=== PATIENT | female | born 1955 | race Caucasian/White ===

== ENCOUNTER 2017-10-15 09:02 | Observation (INO) | payer OTHER ==
[~2017-10-15] VITALS: Ht 167.6 cm; Wt 116.1 kg
[2017-10-15 10:08] LABS: Basophils # (auto) 0.1 uL; Basophils % (auto) 1.1 % (0.0-2.0); Eosinophils # (auto) 0.2 uL; Eosinophils % (auto) 2.7 % (0.0-7.0); Hemoglobin 14.6 g/dL (12.2-16.2); Lymphocytes # (auto) 2.2 uL; Lymphocytes % (auto) 29.3 % (10.0-50.0); Mean Corpuscular Hemoglobin 31.8 pg (28.0-32.0); Mean Corpuscular Volume 93.5 fL (80.0-100.0); Monocytes # (auto) 0.5 uL; Monocytes % (auto) 6.7 % (0.0-12.0); Neutrophils # (auto) 4.5 uL; Neutrophils % (auto) 60.2 % (37.0-80.0); Platelet Count (auto) 287 10^3/uL (140-450); Red Blood Cells 4.59 10^6/uL (4.0-5.20); Red Cell Distribution Width 13.4 % (11.8-14.3); White Blood Cell 7.4 10^3/uL (4.4-10.8)
[2017-10-15 10:24] LABS: Urine Blood Negative /uL (Negative); Urine Specific Gravity 1.017 (1.001-1.035)
[2017-10-15 10:26] LABS: Urine WBC 5 /hpf (0 - 5)
[2017-10-15 10:27] LABS: Urine Bacteria FEW /hpf (None Seen)
[2017-10-15 10:30] LABS: Alanine Aminotransferase 33 U/L (13-56); Albumin 3.9 g/dL (3.4-5.0); Alkaline Phosphatase 99 U/L (45-117); Anion Gap 7 (5-15); Aspartate Aminotransferase 17 U/L (15-37); BUN/Creatinine Ratio 17.4; Bilirubin, Total 0.2 mg/dL (0.2-1.0); Blood Urea Nitrogen 21 mg/dL (7-18); Calcium 9.2 mg/dL (8.5-10.1); Carbon Dioxide 25 mmol/L (21-32); Chloride 104 mmol/L (98-107); GFR African American 58 mL/min; GFR Non-African American 48 mL/min; Glucose 246 mg/dL (74-106); Potassium 4.5 mmol/L (3.5-5.1); Sodium 136 mmol/L (136-145); Total Protein 7.9 g/dL (6.4-8.2)
[2017-10-15 15:49] LABS: Magnesium 1.9 mg/dL (1.6-2.6)
[2017-10-15] MEDS ORDERED: cefTRIAXone 1GM/10ml IVPUSH 10 ML IV ONE ×2 (17:47→18:00)
[2017-10-15 17:49] LABS: INR 0.93 (0.9-1.15); Partial Thromboplastin Time 27.5 sec (22.64-33.71); Prothrombin Time 10.1 sec (9.37-12.3)
[2017-10-15 17:59] VITALS: BP 160/92
[2017-10-15] MEDS ORDERED: KETOROLAC TROMETH 30 MG/ML 1ML VIAL IV ONE (18:00)
== END 2017-10-15 19:23 | disposition home or self-care (01) | DRG 694 ==
LOC: ER 09:02 → OVERFLOW 15:21 → ER 19:22
PROVIDERS: ADMIT Family Medicine; ATTEND Family Medicine
DX: N20.0 Calculus of kidney (principal); E11.9 Type 2 diabetes mellitus without complications; N39.0 Urinary tract infection, site not specified; I10 Essential (primary) hypertension; F17.200 Nicotine dependence, unspecified, uncomplicated; Z82.49 Family history of ischemic heart disease and other diseases of the circulatory system
CPT/HCPCS: 36415; 71045; 74176; 80053; 81001; 82150; 83690; 83735; 84484; 85025; 85610; 85730; 93005; 96374; 96375; 99285; G0378; J1885

== ENCOUNTER 2020-09-05 12:20 | Inpatient (IN) | payer OTHER ==
[~2020-09-05] VITALS: Ht 167.6 cm; Wt 120.0 kg
[2020-09-05] MEDS ORDERED: methylPREDNISolone SOD SUCC 125 MG/2 ML VL IV ONE (12:45)
[2020-09-05 13:52] LABS: Basophils # (auto) 0 10 ^3/uL (0-0.2); Basophils % (auto) 0.2 % (0.0-2.0); Eosinophils # (auto) 0 10 ^3/uL (0-0.8); Hematocrit 35.8 % (36.0-46.0); Lymphocytes # (auto) 0.7 10 ^3/uL (0.4-5.4); Lymphocytes % (auto) 10.3 % (10.0-50.0); Mean Corpuscular Hemoglobin 30.7 pg (28.0-32.0); Mean Corpuscular Hgb Conc. 33.4 g/dL (32.0-36.0); Mean Corpuscular Volume 91.8 fL (80.0-100.0); Monocytes # (auto) 0.3 10 ^3/uL (0-1.3); Monocytes % (auto) 4.2 % (0.0-12.0); Neutrophils # (auto) 5.6 10 ^3/uL (1.6-8.6); Neutrophils % (auto) 85.3 % (37.0-80.0); Platelet Count (auto) 220 10^3/uL (140-450); Red Cell Distribution Width 13.9 % (11.8-14.3); White Blood Cell 6.5 10^3/uL (4.4-10.8)
[2020-09-05 14:12] LABS: Anion Gap 11 (5-15); Blood Urea Nitrogen 26 mg/dL (7-18); Calcium 8.4 mg/dL (8.5-10.1); Carbon Dioxide 15 mmol/L (21-32); Chloride 109 mmol/L (98-107); Glucose 175 mg/dL (74-106); Potassium 3.9 mmol/L (3.5-5.1); Sodium 135 mmol/L (136-145)
[2020-09-05 14:21] LABS: Alanine Aminotransferase 45 U/L (13-56); Alkaline Phosphatase 108 U/L (45-117); Aspartate Aminotransferase 48 U/L (15-37); BUN/Creatinine Ratio 16.1; Bilirubin, Total 0.3 mg/dL (0.2-1.0); GFR African American 42 mL/min; GFR Non-African American 34 mL/min; Total Protein 7.6 g/dL (6.4-8.2)
[2020-09-05] MEDS ORDERED: NITROGLYCERIN 0.4 MG SL TAB SL PRN (15:15)
[2020-09-05] MEDS ORDERED: LORazepam 0.5 MG TAB PO PRN (15:15)
[2020-09-05] MEDS ORDERED: MORPHINE SULF INJ 2 MG/ML SYRINGE 1ML IV PRN (15:15)
[2020-09-05] MEDS ORDERED: SODIUM CHLORIDE 0.9% 1,000 ML IV ONE (15:15)
[2020-09-05] MEDS ORDERED: LEVOTHYROXINE SODIUM 50 MCG TAB PO ONE (15:30)
[2020-09-05 15:37] LABS: Magnesium 1.8 mg/dL (1.6-2.6)
[2020-09-05] MEDS ORDERED: AZIT250T8 PO (15:58)
[2020-09-05] MEDS ORDERED: ALBUAER3 IN (15:58)
[2020-09-05] MEDS ORDERED: PROM1SOL2 PO (15:58)
[2020-09-05] MEDS ORDERED: ATEN-60 PO (16:02)
[2020-09-05] MEDS ORDERED: HYDR200T36 PO (16:02)
[2020-09-05] MEDS ORDERED: [UNRECOGNIZED DRUG - CODE] PO (16:02)
[2020-09-05] MEDS ORDERED: LISI-275 PO (16:02)
[2020-09-05] MEDS ORDERED: ATOR10TA52 PO (16:02)
[2020-09-05] MEDS ORDERED: GLIP10TA9 PO (16:02)
[2020-09-05] MEDS: MORPHINE SULF INJ 2 MG/ML SYRINGE 1ML IV PRN (20:42)
[2020-09-05] MEDS: PANTOPRAZOLE 40 MG TAB PO SCH (22:07)
[2020-09-05] MEDS: BUDESONIDE (INHALATION) 180 MCG IH IN SCH (23:10)
[2020-09-05 23:45] VITALS: BP 142/75
[2020-09-06 00:27] VITALS: BP 135/75
[2020-09-06] MEDS: ALBUTEROL SULF HFA 90MCG INH 200DOSE IN PRN ×3 (00:45→20:50)
[2020-09-06] MEDS: MORPHINE SULF INJ 2 MG/ML SYRINGE 1ML IV PRN (01:58)
--- NOTE | 2020-09-06 04:17 | NUR ---
POST REMDESIVIR 1 HOUR POST VITAL SIGNS TEMP 98.1 PULSE 81 BLOOD PRESSURE 142/64 OXYGEN IS 91% ON 10 LITERS OXYMIZER. PAIN IS 2/10
[2020-09-06 05:00] VITALS: BP 136/63
[2020-09-06] MEDS ORDERED: VANCOMYCIN PER PHARMACY 0 MG IV SCH (05:15)
--- NOTE | 2020-09-06 05:15 | NUR ---
NOTIFIED OF LAB RESULTS GRAM NEGATIVE RODS. ORDERED VANCO PER PHARMACY.
[2020-09-06 05:44] LABS: Basophils # (auto) 0 10 ^3/uL (0-0.2); Basophils % (auto) 0.1 % (0.0-2.0); Eosinophils # (auto) 0 10 ^3/uL (0-0.8); Hematocrit 34.5 % (36.0-46.0); Hemoglobin 11.4 g/dL (12.2-16.2); Lymphocytes # (auto) 0.4 10 ^3/uL (0.4-5.4); Lymphocytes % (auto) 4.9 % (10.0-50.0); Mean Corpuscular Volume 91.2 fL (80.0-100.0); Monocytes # (auto) 0.4 10 ^3/uL (0-1.3); Monocytes % (auto) 5.2 % (0.0-12.0); Neutrophils # (auto) 6.4 10 ^3/uL (1.6-8.6); Neutrophils % (auto) 89.8 % (37.0-80.0); Platelet Count (auto) 252 10^3/uL (140-450); Red Blood Cells 3.78 10^6/uL (4.0-5.20); Red Cell Distribution Width 14.3 % (11.8-14.3); White Blood Cell 7.1 10^3/uL (4.4-10.8)
[2020-09-06] MEDS ORDERED: VANCOMYCIN 1GM/250ML 250 ML IV ONE (05:45)
[2020-09-06 06:03] LABS: Potassium 4.5 mmol/L (3.5-5.1)
[2020-09-06 06:15] LABS: Albumin 2.7 g/dL (3.4-5.0); BUN/Creatinine Ratio 27.3; Bilirubin, Total 0.2 mg/dL (0.2-1.0); Calcium 8.4 mg/dL (8.5-10.1); Total Protein 7.3 g/dL (6.4-8.2)
[2020-09-06] MEDS: BUDESONIDE (INHALATION) 180 MCG IH IN SCH ×2 (07:00→19:25)
--- NOTE | 2020-09-06 08:00 | NUR ---
Morning note patient resting in bed with eyes closed; respirations even and unlabored on supplemental oxygen, no distress noted. Fall precautions in place with call light within reach.
[2020-09-06 09:00] VITALS: BP 148/64
[2020-09-06] MEDS ORDERED: cefTRIAXone 1GM/50ML D5W 50 ML IV SCH (09:00)
[2020-09-06] MEDS: PANTOPRAZOLE 40 MG TAB PO SCH ×2 (09:48→21:46)
[2020-09-06] MEDS: ASCORBIC ACID 1,000 MG TAB PO SCH (09:48)
[2020-09-06] MEDS: ZINC SULFATE 220mg CAP or TAB PO SCH (09:49)
[2020-09-06] MEDS: CHOLECALCIFEROL (VITD3) 2,000 UNIT CAP PO SCH (09:49)
[2020-09-06] MEDS: ACETAMINOPHEN 500 MG TAB PO PRN (09:50)
[2020-09-06] MEDS ORDERED: AZITHROMYCIN 500MG/ 250ML 250 ML IV SCH (10:00)
[2020-09-06] MEDS: DOCUSATE CALCIUM 240 MG CAP PO SCH (10:00)
--- NOTE | 2020-09-06 10:29 | NUR ---
was at bedside - Dr. Maxwell This RN was at bedside. POC discussed with RN and patient.
--- NOTE | 2020-09-06 12:00 | NUR ---
RE: Intervention Encouraged patient to sit in chair at bedside. Patient verbalized understanding. Patient sitting at side of bed with both feet dangling. Call light within reach. Addendum: 09/06/20 at 1317 by Sheila Apodaca RN Amended: Links added.
--- NOTE | 2020-09-06 12:35 | NUR ---
WOUND CARE NOTE: Wound care in to see patient per wound care request regarding " open wound to right great toe". Bedside nurse took photograph of patient's wound upon admission for reference. Patient is 65 y/o female with admitting diagnosis of Pneumonia,CoVid. Patient is resting in bed in Rm. 215A. She's on airborne precautions due to CoVid. Patient is awake, alert and oriented. She's self turning and repositioning and she reported that she's ambulatory. Her Steve score is 20. Noted patient's plantar aspect of R great toe has 1x1x0.5cm open ulceration. Wound bed is red with yellow hyperkeratotic ring,minimal serous drainage noted,no odor noted. Patient reported that she has had the R great toe wound since March and in the process of seeing a new savings counselor as she has a referral. Cleansed patient's R great toe wound with wound cleanser,patted dry with gauze, applied Thera honey gauze to wound bed area and covered with Opti foam dressing. Dry blood blister also noted on distal aspect of patient's Rt 5th toe, area is clean and dry,left open to air. Patient's wound care education provided regarding Diabetic Foot care and encourage to see savings counselor. Patient verbalized understanding. No other wound noted, no pressure injury noted. Patient tolerated well. Bed in low position,call euceda within reach,all safety precautions in placed. RECOMMENDATION: Nursing to continue with Daily/PRN dressing change to R great toe wound per MD order, Dietary consult for wound, podiatry consult, continue monitoring by wound care while patient is hospitalized. Addendum: 09/06/20 at 1630 by Mary Kay Serrano RN Amended: Links added.
[2020-09-06 13:00] VITALS: BP 131/64
[2020-09-06] MEDS ORDERED: REMDESIVIR PER PHARMACY IV SCH (15:30)
[2020-09-06] MEDS ORDERED: FUROSEMIDE 20 MG/2 ML VIAL IV ONE (15:30)
[2020-09-06] MEDS ORDERED: DexAMETHasone SOD PHOS 10MG/1ML VIAL INJ IV ONE (15:30)
[2020-09-06] MEDS ORDERED: DEXTROSE (50%) 50ML SYRG IV PRN (15:45)
--- NOTE | 2020-09-06 15:57 | NUR ---
RE: Blood bank Contacted blood bank RE: Convalescent plasma order. Convalescent plasma not available. Awaiting delivery from [facility] per employee at [facility] blood bank.
[2020-09-06 16:30] VITALS: BP 144/69
[2020-09-06] MEDS: LEVOTHYROXINE SODIUM 100 MCG TAB PO SCH (16:50)
[2020-09-06] MEDS ORDERED: REMDESIVIR 200 MG in NS 210ml LOADING DOSE ADULT IV ONE (17:00)
[2020-09-06] MEDS: ACCU-CHEK COMFORT CURVE STRIP VI SCH ×2 (17:04→21:47)
[2020-09-06] MEDS: InsuLIN REG 1unit/0.01ml Soln (100units/ml) SC SCH ×2 (17:11→21:47)
[2020-09-06] MEDS: IBUPROFEN 400 MG TAB PO PRN (17:12)
[2020-09-06] MEDS: ONDANSETRON HCL 4 MG/2 ML VIAL IV PRN (17:12)
[2020-09-06 17:39] LABS: % Iron Saturation 9.3 % (15-50)
[2020-09-06] MEDS: PIPERACILLIN-TAZOB 3.375GM 100 ML IV SCH (18:00)
--- NOTE | 2020-09-06 18:55 | NUR ---
RE: Pulse ox Pulse ox 84% on 5 L NC after ambulating from restroom. Patient placed on 10 L Oxymizer. Pulse ox 90%. Respirations even and unlabored, no distress noted.
--- NOTE | 2020-09-06 19:00 | NUR ---
RE: Remdesivir Remdesivir continues to be infused per MD order. Patient tolerating well. Pre-infusion VS: BP 137/59 mmHg, HR 79 bpm. VS 15 after infusion began: BP 164/69 mmHg, HR 73 BMP. VS at end of this RN's shift: BP 145/77 mmHg, HR 76 BPM.
--- NOTE | 2020-09-06 19:30 | NUR ---
Closing note/Care endorsed Patient resting in bed with even and unlabored respirations, no distress noted. Fall precautions in place with call light within reach.
[2020-09-06] MEDS: INSULIN LANTUS (GLARGINE) 1 /0.01ml (100units/ml) SC SCH (21:48)
[2020-09-06] MEDS ORDERED: ENOXAPARIN SOD 100 MG/1 ML SYRINGE SC SCH (22:00)
[2020-09-06 22:43] VITALS: BP 142/64
[2020-09-06 23:44] LABS: Urine Bacteria NONE SEEN /hpf (None Seen); Urine Blood 2+ /uL (Negative); Urine Specific Gravity 1.016 (1.001-1.035); Urine WBC 19 /hpf (0 - 5)
[2020-09-07] VITALS (8 sets, daily range): BP systolic 106–160; BP diastolic 51–85
--- NOTE | 2020-09-07 04:14 | NUR ---
NEW IV PATIENTS IV IN HER RIGHT A/C WAS LEAKING. NEW IV PUT IN 09/07/20 AT 0405 .20 GAUGE LEFT UPPER ARM.
[2020-09-07] MEDS: ACETAMINOPHEN 500 MG TAB PO PRN (04:29)
[2020-09-07] MEDS: LEVOTHYROXINE SODIUM 100 MCG TAB PO SCH (05:40)
[2020-09-07] MEDS: PIPERACILLIN-TAZOB 3.375GM 100 ML IV SCH ×5 (05:40→23:38)
[2020-09-07] MEDS: InsuLIN REG 1unit/0.01ml Soln (100units/ml) SC SCH ×4 (05:40→22:03)
[2020-09-07] MEDS: ACCU-CHEK COMFORT CURVE STRIP VI SCH ×4 (05:40→21:59)
[2020-09-07] MEDS: BUDESONIDE (INHALATION) 180 MCG IH IN SCH ×2 (06:49→22:12)
[2020-09-07 06:59] LABS: Potassium 4.5 mmol/L (3.5-5.1)
[2020-09-07 07:08] LABS: Albumin 2.6 g/dL (3.4-5.0); BUN/Creatinine Ratio 28.4; Bilirubin, Total 0.2 mg/dL (0.2-1.0); Total Protein 7.3 g/dL (6.4-8.2)
[2020-09-07] MEDS: DOCUSATE CALCIUM 240 MG CAP PO SCH (10:00)
[2020-09-07] MEDS ORDERED: ENOXAPARIN SOD 120 MG/0.8 ML SYRINGE SC ONE (10:15)
[2020-09-07] MEDS: ASCORBIC ACID 1,000 MG TAB PO SCH (10:22)
[2020-09-07] MEDS: PANTOPRAZOLE 40 MG TAB PO SCH ×2 (10:22→21:59)
[2020-09-07] MEDS: CHOLECALCIFEROL (VITD3) 2,000 UNIT CAP PO SCH (10:22)
[2020-09-07] MEDS: ZINC SULFATE 220mg CAP or TAB PO SCH (10:22)
[2020-09-07] MEDS: FUROSEMIDE 20 MG/2 ML VIAL IV SCH (10:24)
--- NOTE | 2020-09-07 11:27 | NUR ---
Nutrition Assessment Note Please see attached link for complete assessment Est energy needs ABW 89 [id number] kcal (17-20 kcal/kg ABW) Est protein needs 71-89 g (0.8-1g/kg ABW r/t elev RFT) Will monitor and reassess prn Addendum: 09/07/20 at [address] Amended: Links added.
[2020-09-07] MEDS: DexAMETHasone SOD PHOS 10MG/1ML VIAL INJ IV SCH (11:52)
[2020-09-07] MEDS: IBUPROFEN 400 MG TAB PO PRN (12:18)
[2020-09-07] MEDS: ONDANSETRON HCL 4 MG/2 ML VIAL IV PRN (12:18)
--- NOTE | 2020-09-07 12:40 | NUR ---
RE: Convalescent Plasma Convalescent Plasma infusion started per MD order. Patient educated on s/s of blood transfusion reaction and instructed to notify staff immediately with any change in status. patient verbalized understanding. Patient on 15 LPM Non-rebreather with no respiratory distress noted. VS obtained per protocol.
--- NOTE | 2020-09-07 12:55 | NUR ---
Convalescent Plasma transfusion continues Patient tolerating well. Patient denies s/s of blood transfusion reaction. Instructed patient to notify staff immediately with any change of status. Patient verbalized understanding. Call light within reach.
--- NOTE | 2020-09-07 13:09 | NUR ---
was at bedside - Dr. Maxwell Updated MD on patients status. MD verbalized understanding.
--- NOTE | 2020-09-07 13:40 | NUR ---
Patient ambulated to restroom Patient changed to 6 LPM NC. patient ambulated to restroom with a steady gait. Instructed patient to use the call system if assistance needed. patient verbalized understanding.
--- NOTE | 2020-09-07 13:48 | NUR ---
Patient returned to bed/placed on 15 LPM Non-rebreather Patient SOB on 6 LPM NC after ambulation. SOB improved once placed on 15 LPM Non-rebreather. Call light within reach.
--- NOTE | 2020-09-07 13:50 | NUR ---
RE: Convalescent Plasma completed Patient tolerated well. VS assessed. Patient denies s/s of blood transfusion reaction. Instructed patient to notify staff immediately with any change in status. Patient verbalized understanding. Call light within reach.
[2020-09-07] MEDS: ALBUTEROL SULF HFA 90MCG INH 200DOSE IN PRN ×2 (14:20→22:12)
--- NOTE | 2020-09-07 15:15 | NUR ---
Patient resting in bed with eyes closed Respirations unlabored. No distress noted.
[2020-09-07] MEDS: FERROUS SULFATE 325 MG TAB PO SCH (17:46)
[2020-09-07] MEDS: REMDESIVIR 100 MG in SODIUM CHL 0.9% 250 ML IV SCH (17:47)
--- NOTE | 2020-09-07 18:51 | NUR ---
Closing note Patient resting in bed with even and unlabored respirations on 10 LPM Oxymizer. Patient changed from non-rebreather to Oxymizer to eat dinner meal. Fall precautions in place with call light within reach.
--- NOTE | 2020-09-07 18:51 | NUR ---
RE: Remdesivir Remdesivir started per MD order. Pre-infusion VS: BP 145/69 mmHg, HR 72 bpm, pulse ox 90%; VS 15 minutes after infusion started: BP 140/65 mmHg, HR 74 BPM, pulse ox 90%. IV site is patent with no s/s leaking or infiltration noted. Call light within reach.
--- NOTE | 2020-09-07 19:01 | NUR ---
Remdesivir completed VS: BP 140/61 mmHg, HR 71 bpm, pulse ox 90% on 15 LPM Non-rebreather.
--- NOTE | 2020-09-07 19:05 | NUR ---
Care endorsed to SAMANTHA Domingo.
--- NOTE | 2020-09-07 19:32 | NUR ---
Opening Shift Note Assumed care of patient, awake and alert. No S/S of distress/SOB or pain. Instructed on POC and to call for assist PRN, will continue to monitor for changes Q1hr and PRN.
[2020-09-07] MEDS: ENOXAPARIN SOD 120 MG/0.8 ML SYRINGE SC SCH (21:59)
[2020-09-07] MEDS: INSULIN LANTUS (GLARGINE) 1 /0.01ml (100units/ml) SC SCH (22:02)
[2020-09-08 05:15] VITALS: BP 124/62
[2020-09-08 05:41] VITALS: BP 124/62
[2020-09-08] MEDS: IBUPROFEN 400 MG TAB PO PRN (05:45)
[2020-09-08 06:12] LABS: Hematocrit 37.9 % (36.0-46.0); Hemoglobin 12.2 g/dL (12.2-16.2)
[2020-09-08] MEDS: PIPERACILLIN-TAZOB 3.375GM 100 ML IV SCH ×3 (06:17→18:28)
[2020-09-08] MEDS: ACCU-CHEK COMFORT CURVE STRIP VI SCH ×4 (06:18→21:57)
[2020-09-08] MEDS: LEVOTHYROXINE SODIUM 100 MCG TAB PO SCH (06:18)
[2020-09-08] MEDS: InsuLIN REG 1unit/0.01ml Soln (100units/ml) SC SCH ×4 (06:18→21:58)
[2020-09-08 06:29] LABS: Potassium 4.4 mmol/L (3.5-5.1)
[2020-09-08 06:37] LABS: Albumin 2.8 g/dL (3.4-5.0); BUN/Creatinine Ratio 30.5; Bilirubin, Total 0.3 mg/dL (0.2-1.0); Calcium 9.2 mg/dL (8.5-10.1); Magnesium 2.2 mg/dL (1.6-2.6); Total Protein 7.6 g/dL (6.4-8.2)
[2020-09-08] MEDS: BUDESONIDE (INHALATION) 180 MCG IH IN SCH ×2 (06:44→19:20)
[2020-09-08 08:00] VITALS: BP 155/77
[2020-09-08] MEDS: FERROUS SULFATE 325 MG TAB PO SCH ×2 (08:00→17:16)
[2020-09-08 09:45] VITALS: BP 155/77
[2020-09-08] MEDS: DOCUSATE CALCIUM 240 MG CAP PO SCH (10:00)
--- NOTE | 2020-09-08 11:55 | NUR ---
DR SHAIKH AREVALO DISCUSSED THE PLAN OF CARE WITH PATIENT.
[2020-09-08] MEDS: DexAMETHasone SOD PHOS 10MG/1ML VIAL INJ IV SCH (11:59)
[2020-09-08] MEDS: PANTOPRAZOLE 40 MG TAB PO SCH ×2 (12:00→21:57)
[2020-09-08] MEDS: CHOLECALCIFEROL (VITD3) 2,000 UNIT CAP PO SCH (12:00)
[2020-09-08] MEDS: ENOXAPARIN SOD 120 MG/0.8 ML SYRINGE SC SCH ×2 (12:00→21:57)
[2020-09-08] MEDS: FUROSEMIDE 20 MG/2 ML VIAL IV SCH (12:00)
[2020-09-08] MEDS: ASCORBIC ACID 1,000 MG TAB PO SCH (12:05)
[2020-09-08] MEDS: ZINC SULFATE 220mg CAP or TAB PO SCH (12:05)
--- NOTE | 2020-09-08 12:25 | NUR ---
DR RAMONE AREVALO DISCUSSED THE PLAN OF CARE WITH PATIENT.
[2020-09-08 13:00] VITALS: BP 153/72
[2020-09-08] MEDS: ALBUTEROL SULF HFA 90MCG INH 200DOSE IN PRN (14:34)
--- NOTE | 2020-09-08 14:45 | NUR ---
RECEIVED A CALL FROM DR PACK REQUESTING PATIENT TO PLACED ON HIGH FLOW. RECEIVED A CALL FROM JAYME DENNIS. PER JAYME SHE WILL CONTACT CHARGE NURSE.
--- NOTE | 2020-09-08 15:30 | NUR ---
SPOKE TO RT JAYME . PER JAYME SHE SPOKE WITH MARILEE IN RT DEPARTMENT AND DR PACK THEY WILL KEEP PATIENT ON 15 NON REBREATHER FOR NOW UNLESS PATIENT STARTS BECOMING YEFRI OR HAS WORSENING OF LABS OR SYMPTOMS. WILL CONTINUE TO MONITOR.
[2020-09-08 16:40] VITALS: BP 146/85
[2020-09-08] MEDS: REMDESIVIR 100 MG in SODIUM CHL 0.9% 250 ML IV SCH (17:14)
[2020-09-08] MEDS: VANCOMYCIN HCL 125MG/5ML ORAL SOL PO SCH ×2 (18:28→21:57)
--- NOTE | 2020-09-08 18:41 | NUR ---
PATIENT REMDESIVIR GIVEN BP FOLLOWED PRE 146/85 HR 77 MID 144/70 HR 64 POST 150/68 HR 75 PATIENT TOLERATED WELL.
--- NOTE | 2020-09-08 20:06 | NUR ---
FAMILY UPDATED SPOKE TO PATIENT'S DON AFTER [employer] CONFIRMED. UPDATED HIM ON PATIENT'S STATUS. ALL QUESTIONS AND CONCERNS ADDRESSED.
[2020-09-08] MEDS: INSULIN LANTUS (GLARGINE) 1 /0.01ml (100units/ml) SC SCH (21:59)
[2020-09-09] VITALS (8 sets, daily range): BP systolic 114–157; BP diastolic 51–90
[2020-09-09] MEDS: PIPERACILLIN-TAZOB 3.375GM 100 ML IV SCH ×4 (00:09→18:05)
[2020-09-09] MEDS: ALBUTEROL SULF HFA 90MCG INH 200DOSE IN PRN ×3 (00:59→22:42)
--- NOTE | 2020-09-09 04:21 | NUR ---
Convalescent Plasma infusion started per MD order. Patient educated on s/s of blood transfusion reaction and instructed to notify staff immediately with any change in status, patient verbalized understanding.
[2020-09-09] MEDS: VANCOMYCIN HCL 125MG/5ML ORAL SOL PO SCH ×4 (06:23→22:04)
[2020-09-09] MEDS: LEVOTHYROXINE SODIUM 100 MCG TAB PO SCH (06:23)
[2020-09-09] MEDS: ACCU-CHEK COMFORT CURVE STRIP VI SCH ×4 (06:23→22:04)
[2020-09-09] MEDS: InsuLIN REG 1unit/0.01ml Soln (100units/ml) SC SCH ×4 (06:26→22:16)
--- NOTE | 2020-09-09 06:48 | NUR ---
Remdesivir completed No s/s of transfusion reaction noted. Patient tolerated well.
[2020-09-09 07:00] LABS: Potassium 3.9 mmol/L (3.5-5.1)
[2020-09-09 07:13] LABS: Albumin 2.8 g/dL (3.4-5.0); BUN/Creatinine Ratio 29.4; Bilirubin, Total 0.3 mg/dL (0.2-1.0); Calcium 8.9 mg/dL (8.5-10.1); Total Protein 6.9 g/dL (6.4-8.2)
--- NOTE | 2020-09-09 07:30 | NUR ---
Opening Shift Note Upon entering room patient awake, alert, and oriented. No signs of distress or pain noted. Patient on 15 L Non-rebreather. Patient relaxed and calm. Instructed the patient on the use of the call light PRN, patient verbalized understanding. Call light within reach. Safety measures in place including bed locked and in lowest position, two side rails up. Will continue to monitor for changes.
[2020-09-09] MEDS: BUDESONIDE (INHALATION) 180 MCG IH IN SCH ×2 (07:35→22:40)
[2020-09-09] MEDS: FERROUS SULFATE 325 MG TAB PO SCH ×2 (08:30→18:05)
[2020-09-09] MEDS: DOCUSATE CALCIUM 240 MG CAP PO SCH (10:00)
--- NOTE | 2020-09-09 10:51 | NUR ---
Phone call with Dr. Shaik Dr. Jha on phone, recommended patient be put on 10 L Oxymizer to see how patient tolerates. Will call back to update.
--- NOTE | 2020-09-09 11:00 | NUR ---
Patient on 10 L Oxymizer Patient was switched from 15 L non rebreather to see how she tolerates. Patient did not tolerate well, O2 saturations dropped to the 50's. Patient put back on 15 L non rebreather. Will update physician as requested.
--- NOTE | 2020-09-09 11:00 | NUR ---
Patient placed back on 15 L non rebreather Patient was switched back from 10 L oxymizer to 15 L non rebreather. Patient did not tolerate oxymizer well, O2 saturations dropped to the 50's. Patient put back on 15 L non rebreather.
[2020-09-09] MEDS: ASCORBIC ACID 1,000 MG TAB PO SCH (11:20)
[2020-09-09] MEDS: CHOLECALCIFEROL (VITD3) 2,000 UNIT CAP PO SCH (11:20)
[2020-09-09] MEDS: PANTOPRAZOLE 40 MG TAB PO SCH ×2 (11:20→22:04)
[2020-09-09] MEDS: FUROSEMIDE 20 MG/2 ML VIAL IV SCH (11:20)
[2020-09-09] MEDS: ENOXAPARIN SOD 120 MG/0.8 ML SYRINGE SC SCH ×2 (11:21→22:04)
--- NOTE | 2020-09-09 11:30 | NUR ---
Spoke with Dr. Buchanan Spoke with Dr. Buchanan. Updated on how patient was unable to tolerate 10 L oxymizer and was switched back to [address] Buchanan requested patient be moved to a room where patient may be given high flow.
--- NOTE | 2020-09-09 12:00 | NUR ---
Paged Dr. Jha Spoke to Dr. Jha, updated on how patient was unable to tolerate 10 L oxymizer and that patient was placed back on 15 L nonrebreather. Informed of Dr. Buchanan's request to move patient to a room for high flow.
[2020-09-09] MEDS: ZINC SULFATE 220mg CAP or TAB PO SCH (12:19)
[2020-09-09] MEDS: DexAMETHasone SOD PHOS 10MG/1ML VIAL INJ IV SCH (12:19)
[2020-09-09] MEDS ORDERED: FUROSEMIDE 40 MG/4 ML VIAL IV ONE (13:00)
--- NOTE | 2020-09-09 13:30 | NUR ---
Paged Dr. Buchanan Paged Dr. Buchanan.
--- NOTE | 2020-09-09 13:33 | NUR ---
Spoke to Dr. Buchanan Spoke to Dr. Buchanan. Informed on status of the possibility of not being able to move patient to room with high flow because of limited room availability. Dr. Buchanan stated understanding but requests the patient be moved to room with high flow as soon as there is availability.
--- NOTE | 2020-09-09 14:51 | NUR ---
Dr Maxwell returned call, informed her patient is not being moved to a room with high flow at this time.
[2020-09-09] MEDS: IBUPROFEN 400 MG TAB PO PRN (15:48)
[2020-09-09] MEDS: REMDESIVIR 100 MG in SODIUM CHL 0.9% 250 ML IV SCH (16:15)
--- NOTE | 2020-09-09 16:30 | NUR ---
REMDESIVIR Pre Remdesivir Vitals (1615) Temperature: 98.7 Heart Rate: 75 Respiratory Rate: 22 O2: 94 Blood Pressure: 155/90 15 Minute Gabriel Vitals (1630) Temperature: 98.8 Heart Rate: 68 Respiratory Rate: 22 O2: 96 Blood Pressure: 127/53
--- NOTE | 2020-09-09 17:20 | NUR ---
REMDESIVIR Post Remdesivir Vitals (1720) Temperature: 98.4 Heart Rate: 64 Respiratory Rate: 20 O2: 96 Blood Pressure: 151/68
--- NOTE | 2020-09-09 18:20 | NUR ---
REMDESIVIR Vitals 1 hour post Remdesivir (1820) Temperature: 97.6 Heart Rate: 69 Respiratory Rate: 20 O2: 94 Blood Pressure: 151/73
[2020-09-09] MEDS: INSULIN LANTUS (GLARGINE) 1 /0.01ml (100units/ml) SC SCH (22:13)
[2020-09-10] MEDS: PIPERACILLIN-TAZOB 3.375GM 100 ML IV SCH ×4 (00:23→17:49)
[2020-09-10 05:33] VITALS: BP 142/61
[2020-09-10 05:49] LABS: Basophils # (auto) 0 10 ^3/uL (0-0.2); Basophils % (auto) 0.2 % (0.0-2.0); Eosinophils # (auto) 0 10 ^3/uL (0-0.8); Hematocrit 35.7 % (36.0-46.0); Hemoglobin 11.6 g/dL (12.2-16.2); Lymphocytes # (auto) 0.6 10 ^3/uL (0.4-5.4); Lymphocytes % (auto) 6.5 % (10.0-50.0); Mean Corpuscular Hemoglobin 29.4 pg (28.0-32.0); Mean Corpuscular Hgb Conc. 32.5 g/dL (32.0-36.0); Mean Corpuscular Volume 90.3 fL (80.0-100.0); Monocytes # (auto) 0.4 10 ^3/uL (0-1.3); Monocytes % (auto) 4.5 % (0.0-12.0); Neutrophils # (auto) 8.1 10 ^3/uL (1.6-8.6); Neutrophils % (auto) 88.8 % (37.0-80.0); Nucleated Red Blood Cells % 0.1 %; Platelet Count (auto) 373 10^3/uL (140-450); Red Blood Cells 3.96 10^6/uL (4.0-5.20); Red Cell Distribution Width 13.8 % (11.8-14.3); White Blood Cell 9.1 10^3/uL (4.4-10.8)
[2020-09-10 06:12] LABS: Potassium 3.6 mmol/L (3.5-5.1)
[2020-09-10] MEDS: LEVOTHYROXINE SODIUM 100 MCG TAB PO SCH (06:14)
[2020-09-10] MEDS: VANCOMYCIN HCL 125MG/5ML ORAL SOL PO SCH ×2 (06:14→11:39)
[2020-09-10 06:25] LABS: Albumin 2.7 g/dL (3.4-5.0); BUN/Creatinine Ratio 29.2; Bilirubin, Total 0.5 mg/dL (0.2-1.0); Calcium 8.7 mg/dL (8.5-10.1); Total Protein 7.1 g/dL (6.4-8.2)
[2020-09-10] MEDS: ACCU-CHEK COMFORT CURVE STRIP VI SCH ×3 (06:29→17:37)
[2020-09-10] MEDS: InsuLIN REG 1unit/0.01ml Soln (100units/ml) SC SCH ×3 (06:44→17:37)
--- NOTE | 2020-09-10 07:30 | NUR ---
Opening Shift Note Upon entering room patient awake, alert, and oriented. No signs of distress or pain noted. Patient on 15 L nonrebreather. Instructed patient on the use of the call light for assistance PRN, patient verbalized understanding and call light is within reach. Safety measures in place including bed locked and in lowest position with two side rails up. Will continue to monitor for changes.
[2020-09-10] MEDS: ALBUTEROL SULF HFA 90MCG INH 200DOSE IN PRN (07:40)
[2020-09-10] MEDS: BUDESONIDE (INHALATION) 180 MCG IH IN SCH ×2 (07:40→22:00)
[2020-09-10] MEDS: FERROUS SULFATE 325 MG TAB PO SCH ×2 (08:07→17:49)
[2020-09-10 09:00] VITALS: BP 142/67
[2020-09-10] MEDS: DOCUSATE CALCIUM 240 MG CAP PO SCH (10:00)
[2020-09-10] MEDS: DexAMETHasone SOD PHOS 10MG/1ML VIAL INJ IV SCH (10:02)
[2020-09-10] MEDS: FUROSEMIDE 40 MG/4 ML VIAL IV SCH (10:02)
[2020-09-10] MEDS: PANTOPRAZOLE 40 MG TAB PO SCH ×2 (10:03→22:08)
[2020-09-10] MEDS: ZINC SULFATE 220mg CAP or TAB PO SCH (10:03)
[2020-09-10] MEDS: CHOLECALCIFEROL (VITD3) 2,000 UNIT CAP PO SCH (10:04)
[2020-09-10] MEDS: ENOXAPARIN SOD 120 MG/0.8 ML SYRINGE SC SCH ×2 (10:04→22:09)
[2020-09-10] MEDS ORDERED: REMDESIVIR PER PHARMACY IV SCH (11:15)
--- NOTE | 2020-09-10 11:15 | NUR ---
Dr. Buchanan rounding Dr. Buchanan at Bedside, discussed plan of care with patient.
--- NOTE | 2020-09-10 11:26 | NUR ---
Dr. Jha Rounding Dr. Jha at bedside, discussed plan of care with patient.
[2020-09-10 13:00] VITALS: BP 129/63
--- NOTE | 2020-09-10 15:14 | NUR ---
Nutrition Followup Notes Pt wt is 120.0 kg Pt is positive for COVID, in isolation. Pt is with a Cardiac 2gNa diet, appetite is fair aeb ave 50% x3 PO intake per RN doc. Per notes, pt is with no s/s of distress or pain. Est energy needs ABW 89 [id number] kcal (17-20 kcal/kg ABW) Est protein needs 71-89 g (0.8-1g/kg ABW r/t elev RFT) Will monitor and reassess prn LABS: BUN 35 H, Creat 1.2 H, GFR 48 L, Gluc 255 H, Alb 2.7 L GI: Pt had 1 BM today per RN doc. BS: 20 low risk. Refer to wound assessment report for further details. PES: 1) Altered nutrition related lab values r.t current chronic medical condition aeb elev RFT hyperglycemia, mod hypoalb 2) Decreased nutrient needs r/t adiposity aeb pt`s high BMI of 42.7 kgm2 Comments Will continue to monitor PO status, skin status, pertinent labs and weight trends. Will f/u in 3-5 days 1) Consider CCHO 60 gm along with current diet 2) Refer to CDE on DC 3) Continue current plan of care
--- NOTE | 2020-09-10 15:35 | NUR ---
Phone call with Dr. Maxwell Spoke to Dr. Maxwell. Dr. Maxwell requested social worker psychiatric consult.
--- NOTE | 2020-09-10 15:45 | NUR ---
REMDESIVIR Pre Remdesivir Vitals (1545) Heart Rate: 80 Temperature: 98.4 O2: 92 Respiratory Rate: 20 Blood Pressure: 125/72 15 minute Vitals (1600) Heart Rate: 65 Temperature: 97.6 O2: 94 Respiratory Rate: 20 Blood Pressure: 151/67
[2020-09-10] MEDS: REMDESIVIR 100 MG in SODIUM CHL 0.9% 250 ML IV SCH (15:46)
--- NOTE | 2020-09-10 16:11 | NUR ---
I received a call from Gracia at [facility] regarding transferring this patient back in network. Dr. Maxwell spoke with medical claims manager for [facility]-order noted to transfer patient back in network. I called Gracia at [facility] [phone] and let her know that order was placed. I faxed order and today's clinical information to her at [phone]. Per Gracia, they are working on finding an accepting facility and when they do they will arrange transportation and will call the nurse's station.
--- NOTE | 2020-09-10 16:50 | NUR ---
REMDESIVIR Post Remdesivir Vitals Heart Rate: 65 Temperature: 97.9 O2: 96 Respiratory Rate: 20 Blood Pressure: 163/79
[2020-09-10 16:55] VITALS: BP 141/71
--- NOTE | 2020-09-10 17:15 | NUR ---
Blood Sugar Critical High value of 421.
--- NOTE | 2020-09-10 17:20 | NUR ---
Spoke to Dr. Diaz Spoke to Dr. Diaz about patient critical high blood sugar of 421. Requested to put patient on moderate sliding scale q4h and give 10 units of regular insulin.
[2020-09-10] MEDS ORDERED: DEXTROSE (50%) 50ML SYRG IV PRN ×2 (17:45→23:00)
[2020-09-10] MEDS: ASCORBIC ACID 1,000 MG TAB PO SCH (17:48)
--- NOTE | 2020-09-10 17:50 | NUR ---
REMDESIVIR Remdesivir Vitals post 1 hour (1750) Heart Rate: 67 Temperature: 97.6 Respiratory Rate: 18 O2: 91 Blood Pressure: 164/70
--- NOTE | 2020-09-10 19:50 | NUR ---
OPENING SHIFT NOTE Assumed care of patient who is A&O x4. Currently on 15L NRB. Reports SOB with exertion and non-productive cough noted. denies pain at this time. PIV in right forearm is intact and patent. Flushed with 10ml NS. Patient is ambulatory without the use of assistive devices at baseline. Able to transfer to [facility] independently. Bed is in low locked position with side rails up x2. Call light is within reach and patient encouraged to call for assistance when needed. Will continue to monitor for changes PRN.
[2020-09-10] MEDS ORDERED: ACCU-CHEK COMFORT CURVE STRIP VI SCH (20:00)
[2020-09-10] MEDS ORDERED: InsuLIN REG 1unit/0.01ml Soln (100units/ml) SC SCH (20:00)
[2020-09-10 21:40] VITALS: BP 166/74
--- NOTE | 2020-09-10 22:00 | NUR ---
BLOOD GLUCOSE BG assessed and is 523. Insulin administered according to sliding scale. Hospitalist paged to notify. Awaiting call back.
[2020-09-10] MEDS: INSULIN LANTUS (GLARGINE) 1 /0.01ml (100units/ml) SC SCH (22:09)
--- NOTE | 2020-09-10 23:00 | NUR ---
HOSPITALIST received call from Rafa Ballesteros NP. New orders received. Read back and verified.
[2020-09-10] MEDS: hydrALAZINE HCL 20 MG/ML VL IV PRN (23:03)
--- NOTE | 2020-09-10 23:30 | NUR ---
IV insertion IV access obtained, via clean sterile technique by inserting 22 gauge catheter at left wrist after 2 attempts. IV secured properly. No trauma to site. Patient tolerated well. NOTE: IV to right forearm inadvertently removed by patient. Catheter is fully intact. Pressure dressing applied.
[2020-09-11] MEDS: PIPERACILLIN-TAZOB 3.375GM 100 ML IV SCH ×4 (00:15→17:54)
[2020-09-11] MEDS: ACCU-CHEK COMFORT CURVE STRIP VI SCH ×6 (00:15→21:58)
[2020-09-11] MEDS: InsuLIN REG 1unit/0.01ml Soln (100units/ml) SC SCH ×6 (00:37→22:08)
[2020-09-11 05:21] VITALS: BP 157/72
[2020-09-11] MEDS: LEVOTHYROXINE SODIUM 100 MCG TAB PO SCH (06:15)
[2020-09-11 06:18] LABS: Albumin 2.7 g/dL (3.4-5.0); Calcium 8.9 mg/dL (8.5-10.1); Potassium 3.2 mmol/L (3.5-5.1)
[2020-09-11 06:22] LABS: BUN/Creatinine Ratio 30.8; Bilirubin, Total 0.5 mg/dL (0.2-1.0); Total Protein 7.4 g/dL (6.4-8.2)
[2020-09-11] MEDS: BUDESONIDE (INHALATION) 180 MCG IH IN SCH (06:45)
[2020-09-11] MEDS: hydrALAZINE HCL 20 MG/ML VL IV PRN (07:35)
[2020-09-11 09:00] VITALS: BP 124/60
[2020-09-11] MEDS: FUROSEMIDE 40 MG/4 ML VIAL IV SCH (10:35)
[2020-09-11] MEDS: PANTOPRAZOLE 40 MG TAB PO SCH ×2 (10:36→21:57)
[2020-09-11] MEDS: ZINC SULFATE 220mg CAP or TAB PO SCH (10:36)
[2020-09-11] MEDS: CHOLECALCIFEROL (VITD3) 2,000 UNIT CAP PO SCH (10:39)
[2020-09-11] MEDS: ENOXAPARIN SOD 120 MG/0.8 ML SYRINGE SC SCH ×2 (10:39→21:58)
[2020-09-11] MEDS: IBUPROFEN 400 MG TAB PO PRN (10:39)
[2020-09-11] MEDS: FERROUS SULFATE 325 MG TAB PO SCH ×2 (10:40→17:46)
[2020-09-11] MEDS: DexAMETHasone SOD PHOS 10MG/1ML VIAL INJ IV SCH (10:40)
[2020-09-11] MEDS: ASCORBIC ACID 1,000 MG TAB PO SCH (10:40)
[2020-09-11] MEDS: DOCUSATE CALCIUM 240 MG CAP PO SCH (10:50)
[2020-09-11] MEDS ORDERED: POTASSIUM CHL 20 Meq TABLET PO ONE (11:15)
[2020-09-11] MEDS ORDERED: DEXTROSE (50%) 50ML SYRG IV PRN (11:30)
--- NOTE | 2020-09-11 12:30 | NUR ---
Supplemental oxygen decreased to 14 LPM Non-rebreather - pulse ox 96%. Respirations even and unlabored, no distress noted. Call light within reach.
[2020-09-11 13:00] VITALS: BP 127/63
--- NOTE | 2020-09-11 14:58 | NUR ---
I called [facility] Metal Wire Technician Gracia and left message asking for an update on the status of the transfer to an in-network facility.
[2020-09-11 17:00] VITALS: BP 136/74
--- NOTE | 2020-09-11 17:04 | NUR ---
Patient transferred self to [facility] Instructed patient on deep breathing & coughing technique as well as using IS at bedside. Patient verbalized understanding. Respirations even and unlabored on NRB mask.
--- NOTE | 2020-09-11 18:52 | NUR ---
Closing note Patient resting in bed with even and unlabored respirations on 14 LPM NRB, no distress noted. Fall precautions in place with call light within reach. Patient has been instructed throughout this RNs shift to cough, deep breathe & turn as well as using IS at bedside. Patient verbalized understanding.
--- NOTE | 2020-09-11 19:06 | NUR ---
Care endorsed to SAMANTHA Sánchez.
[2020-09-11] MEDS: ALBUTEROL SULF HFA 90MCG INH 200DOSE IN PRN (19:46)
--- NOTE | 2020-09-11 19:50 | NUR ---
OPENING SHIFT NOTE Assumed care of patient who is A&O x4. Currently on 15L NRB. Spo2 is 96% Non-productive cough noted. denies pain at this time. PIV in right forearm is intact and patent. Flushed with 10ml NS. Patient is ambulatory without the use of assistive devices at baseline. Able to transfer to [facility] independently. Bed is in low locked position with side rails up x2. Call light is within reach and patient encouraged to call for assistance when needed. Will continue to monitor for changes PRN.
--- NOTE | 2020-09-11 21:10 | NUR ---
SUPPLEMENTAL OXYGEN Supplemental oxygen decreased to 14L via NRB spo2 is 94% Will continue to monitor for changes.
--- NOTE | 2020-09-11 22:00 | NUR ---
BLOOD GLUCOSE Blood glucose assessed and is 511. Insulin administered according to sliding scale. Hospitalist paged to notify.
[2020-09-11 22:02] VITALS: BP 133/64
[2020-09-11] MEDS: INSULIN LANTUS (GLARGINE) 1 /0.01ml (100units/ml) SC SCH (22:09)
--- NOTE | 2020-09-11 22:57 | NUR ---
SPECIMEN COLLECTION Stool sample sent to lab via [facility] system.
[2020-09-12] MEDS: PIPERACILLIN-TAZOB 3.375GM 100 ML IV SCH ×5 (00:18→23:57)
[2020-09-12 05:00] VITALS: BP 128/49
--- NOTE | 2020-09-12 05:38 | NUR ---
BLOOD CULTURE Received call from lab reporting positive blood culture. Hospitalist paged to notify. Awaiting call back.
--- NOTE | 2020-09-12 05:39 | NUR ---
DRESSING CHANGE Dressing to right great toe removed. minimal serous drainage without odor noted. White macerated tissue noted to wound bed with pink edges. Wound cleansed with normal saline and patted dry with sterile gauze. Optifoam applied. Patient tolerated well.
--- NOTE | 2020-09-12 05:52 | NUR ---
HOSPITALIST Received call from Hospitalist Yesi. No new orders at this time regarding Blood culture, the C&S indicated that the organism is sensitive to Zosyn, and the patient is currently receiving Zosyn 3.375Gm Q6.
[2020-09-12] MEDS: ALBUTEROL SULF HFA 90MCG INH 200DOSE IN PRN (06:45)
[2020-09-12] MEDS: ACCU-CHEK COMFORT CURVE STRIP VI SCH ×4 (06:50→22:00)
[2020-09-12] MEDS: LEVOTHYROXINE SODIUM 100 MCG TAB PO SCH (06:50)
[2020-09-12] MEDS: InsuLIN REG 1unit/0.01ml Soln (100units/ml) SC SCH ×4 (06:54→22:00)
[2020-09-12] MEDS: BUDESONIDE (INHALATION) 180 MCG IH IN SCH ×3 (07:10→21:47)
[2020-09-12 07:48] LABS: BUN/Creatinine Ratio 30.1; Calcium 9.1 mg/dL (8.5-10.1)
--- NOTE | 2020-09-12 08:00 | NUR ---
Morning note Patient resting in bed with even & unlabored respirations on 15 LPM NRB, no distress noted. Fall precautions in place with call light within reach.
[2020-09-12 09:00] VITALS: BP 143/66
[2020-09-12] MEDS: POTASSIUM CHL 10 Meq TABLET PO SCH (10:14)
[2020-09-12] MEDS: CHOLECALCIFEROL (VITD3) 2,000 UNIT CAP PO SCH (10:14)
[2020-09-12] MEDS: PANTOPRAZOLE 40 MG TAB PO SCH ×2 (10:14→22:00)
[2020-09-12] MEDS: ENOXAPARIN SOD 120 MG/0.8 ML SYRINGE SC SCH ×2 (10:15→22:00)
[2020-09-12] MEDS: ASCORBIC ACID 1,000 MG TAB PO SCH (10:15)
[2020-09-12] MEDS: FUROSEMIDE 40 MG/4 ML VIAL IV SCH (10:16)
[2020-09-12] MEDS: FERROUS SULFATE 325 MG TAB PO SCH ×2 (10:18→19:11)
[2020-09-12] MEDS: DexAMETHasone SOD PHOS 10MG/1ML VIAL INJ IV SCH (10:18)
[2020-09-12] MEDS: DOCUSATE CALCIUM 240 MG CAP PO SCH (10:32)
[2020-09-12] MEDS: ZINC SULFATE 220mg CAP or TAB PO SCH (11:42)
--- NOTE | 2020-09-12 12:20 | NUR ---
RE: Supplemental oxygen/titration Attempted to titrate supplemental oxygen to 14 LPM NRB. Pulse ox decreased to 88-89%. Verbally instructed by Dr. Munoz to increase supplement oxygen back to 15 LPM NRB. Pulse ox returned to 92-93% on 15 LPM NRB.
--- NOTE | 2020-09-12 12:25 | NUR ---
was at bedside - Dr. Buchanan.
[2020-09-12 12:30] VITALS: BP 149/86
--- NOTE | 2020-09-12 13:42 | NUR ---
I spoke with [facility] Registration Specialist Gracia [phone] regarding the transfer back in network. Per Gracia they are still searching for a bed, none available. Per Gracia if a bed becomes available they will arrange the transportation and they will notify our nurse's station of the arrangements.
[2020-09-12 17:00] VITALS: BP 132/66
[2020-09-12] MEDS ORDERED: INSULIN LANTUS (GLARGINE) 1 /0.01ml (100units/ml) SC ONE (17:15)
--- NOTE | 2020-09-12 18:15 | NUR ---
RE: Oxygenation Found patient sitting at side of bed eating dinner meal with no supplemental oxygen in place. Pulse ox 70% on room air. Placed patient back on 15LPM NRB mask. Pulse ox increased to 92%. Instructed patient to remain with mask in place. Patient verbalized understanding.
--- NOTE | 2020-09-12 18:53 | NUR ---
Closing note Patient resting in bed with even and unlabored respirations on 15 LPM NRB, no distress noted. Fall precautions in place with call light within reach. Patient has been instructed throughout this RNs shift to cough, deep breathe & turn as well as using IS at bedside. Patient verbalized understanding.
--- NOTE | 2020-09-12 19:00 | NUR ---
Opening Shift Note Assumed care of patient, patient awake and alert and oriented x4. No S/S of distress/ pain. patient is on 02 15 liters non rebreather. Instructed on POC and to call for assist PRN, safety measures in place call light with in reach bed in lowest position side rails up x2. will continue to monitor for changes Q1hr and PRN.
--- NOTE | 2020-09-12 19:11 | NUR ---
Care endorsed to SAMANTHA Gottlieb.
[2020-09-12 22:00] VITALS: BP 145/66
[2020-09-12] MEDS: INSULIN LANTUS (GLARGINE) 1 /0.01ml (100units/ml) SC SCH (22:00)
--- NOTE | 2020-09-12 22:10 | NUR ---
Paged Hospitalist for a blood sugar of 428.
--- NOTE | 2020-09-12 23:00 | NUR ---
Hospitalist called back no changes t this time.
[2020-09-13] MEDS: ALBUTEROL SULF HFA 90MCG INH 200DOSE IN PRN ×3 (01:23→23:41)
[2020-09-13 05:00] VITALS: BP_SYST 136; BP_SYST 97; BP_DIAS 56; BP_DIAS 75
[2020-09-13] MEDS: PIPERACILLIN-TAZOB 3.375GM 100 ML IV SCH ×3 (05:16→17:57)
[2020-09-13] MEDS: ACCU-CHEK COMFORT CURVE STRIP VI SCH ×4 (06:29→22:08)
[2020-09-13] MEDS: LEVOTHYROXINE SODIUM 100 MCG TAB PO SCH (06:29)
[2020-09-13] MEDS: InsuLIN REG 1unit/0.01ml Soln (100units/ml) SC SCH ×4 (06:32→22:13)
[2020-09-13] MEDS: BUDESONIDE (INHALATION) 180 MCG IH IN SCH ×2 (07:10→22:04)
[2020-09-13] MEDS: FERROUS SULFATE 325 MG TAB PO SCH ×2 (08:13→17:58)
[2020-09-13] MEDS: PANTOPRAZOLE 40 MG TAB PO SCH ×2 (08:13→22:07)
[2020-09-13] MEDS: POTASSIUM CHL 10 Meq TABLET PO SCH (08:13)
[2020-09-13] MEDS: ASCORBIC ACID 1,000 MG TAB PO SCH (08:13)
[2020-09-13] MEDS: CHOLECALCIFEROL (VITD3) 2,000 UNIT CAP PO SCH (08:14)
[2020-09-13] MEDS: ZINC SULFATE 220mg CAP or TAB PO SCH (08:14)
[2020-09-13] MEDS: DexAMETHasone SOD PHOS 10MG/1ML VIAL INJ IV SCH (08:15)
[2020-09-13 09:00] VITALS: BP 137/72
[2020-09-13] MEDS: DOCUSATE CALCIUM 240 MG CAP PO SCH (10:00)
[2020-09-13] MEDS: FUROSEMIDE 40 MG/4 ML VIAL IV SCH (10:37)
[2020-09-13] MEDS: ENOXAPARIN SOD 120 MG/0.8 ML SYRINGE SC SCH ×2 (10:37→22:07)
--- NOTE | 2020-09-13 11:55 | NUR ---
Nutrition Followup Notes Pt wt is 120.0 kg Pt is positive for COVID, in isolation. Pt is with a CCHO 60g/Cardiac 2gNa diet, appetite is fair aeb ave 50% x6 PO intake per RN doc. Per notes, pt is with no s/s of distress or pain. Est energy needs ABW 89 [id number] kcal (17-20 kcal/kg ABW) Est protein needs 71-89 g (0.8-1g/kg ABW r/t elev RFT) Will monitor and reassess prn LABS: BUN 31 H, Creat 1.03 H, GFR 58 L, Gluc 295 H, Alb 2.7 L GI: Pt had 1 BM today per RN doc. BS: 20 low risk. Refer to wound assessment report for further details. PES: 1) Altered nutrition related lab values r.t current chronic medical condition aeb elev RFT hyperglycemia, mod hypoalb 2) Decreased nutrient needs r/t adiposity aeb pt`s high BMI of 42.7 kgm2 Comments Will continue to monitor PO status, skin status, pertinent labs and weight trends. Will f/u in 3-5 days 1) Consider CCHO 60 gm along with current diet 2) Refer to CDE on DC 3) Continue current plan of care
--- NOTE | 2020-09-13 12:20 | NUR ---
WOUND CARE NOTE: IN TO SEE PATIENT AT THIS TIME FOR RE-EVALUATION OF DFU TO RIGHT PLANTAR # 1 TOE. 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 WOUND BED IS NECROTIC WITH SLOUGH, BOGGY UPON PALPATION . SCANT SEROUS DRAINAGE NOTED. CLEANSED AND DRESSED WOUND PER MD ORDER. NEW WOUND PHOTO TAKEN FOR REFERENCE. PATIENT WILL BE FOLLOWING UP WITH HER LOCAL CARE AID POST DISCHARGE. SKIN/WOUND CARE PLAN UPDATED. RECOMMEND: CONTINUATION WITH ALL WOUND CARE ORDERS PREVIOUSLY PRESCRIBED BY MD. WOUND CARE TEAM WILL CONTINUE TO MONITOR. Addendum: 09/13/20 at 1728 by Florinda Olmstead RN Amended: Links added.
[2020-09-13 13:00] VITALS: BP 137/76
--- NOTE | 2020-09-13 16:34 | NUR ---
High blood sugar Blood sugar 476 mg/dL with a repeat test of 512 mg/dL. Contacted Dr. Buchanan, gave insulin per MD order.
[2020-09-13 17:00] VITALS: BP 142/78
--- NOTE | 2020-09-13 18:15 | NUR ---
oxygen titrated down to 7L NC from 11L oximizer. Patient O2 saturation 93%. Pt tolerating well.
[2020-09-13 22:00] VITALS: BP 116/52
[2020-09-13] MEDS: INSULIN LANTUS (GLARGINE) 1 /0.01ml (100units/ml) SC SCH (22:14)
[2020-09-14] MEDS: PIPERACILLIN-TAZOB 3.375GM 100 ML IV SCH ×2 (00:13→06:08)
[2020-09-14] MEDS: MORPHINE SULF INJ 2 MG/ML SYRINGE 1ML IV PRN (01:22)
[2020-09-14] MEDS: IBUPROFEN 400 MG TAB PO PRN (04:38)
[2020-09-14 05:00] VITALS: BP 97/65
[2020-09-14] MEDS: ACCU-CHEK COMFORT CURVE STRIP VI SCH (07:12)
[2020-09-14] MEDS: LEVOTHYROXINE SODIUM 100 MCG TAB PO SCH (07:12)
[2020-09-14] MEDS: InsuLIN REG 1unit/0.01ml Soln (100units/ml) SC SCH (07:16)
[2020-09-14] MEDS: BUDESONIDE (INHALATION) 180 MCG IH IN SCH (07:29)
--- NOTE | 2020-09-14 07:36 | NUR ---
HOSPITALIST YOLANDA PATIENT HAD SYNCOPE EPISODE WHILE ATTEMPTING TO GET ON TO THE BED SIDE COMMODE. PATIENTS O2 WAS IN THE MID 80'S. NON REBREATHER WAS APPLIED AND PATIENTS O2 IS NOW AT 93%. PATIENT IS A&OX4. NEW ORDERS RECEIVED FOR CT OF THE HEAD. WILL CARRY OUT ORDER.
--- NOTE | 2020-09-14 08:10 | NUR ---
PATIENT SITTING UP IN BED. PATIENT STATED SHE FEELS LIKE SHE HAS A UTI. WILL ADDRESS WITH MD.
[2020-09-14 08:15] VITALS: BP 94/46
[2020-09-14] MEDS: FERROUS SULFATE 325 MG TAB PO SCH (08:33)
[2020-09-14] MEDS: PANTOPRAZOLE 40 MG TAB PO SCH (08:33)
[2020-09-14] MEDS: POTASSIUM CHL 10 Meq TABLET PO SCH (08:33)
[2020-09-14] MEDS: FUROSEMIDE 40 MG/4 ML VIAL IV SCH (08:34)
[2020-09-14] MEDS: ASCORBIC ACID 1,000 MG TAB PO SCH (08:35)
[2020-09-14] MEDS: ZINC SULFATE 220mg CAP or TAB PO SCH (08:35)
[2020-09-14] MEDS: DOCUSATE CALCIUM 240 MG CAP PO SCH (08:35)
[2020-09-14] MEDS: DexAMETHasone SOD PHOS 10MG/1ML VIAL INJ IV SCH (08:35)
[2020-09-14] MEDS: CHOLECALCIFEROL (VITD3) 2,000 UNIT CAP PO SCH (08:36)
[2020-09-14] MEDS: ENOXAPARIN SOD 120 MG/0.8 ML SYRINGE SC SCH (10:00)
--- NOTE | 2020-09-14 11:04 | NUR ---
DR. PACK AT BEDSIDE DISCUSSING POC WITH PATIENT SILVEIRA CATHETER TO BE PLACED FOR RETENTION.
--- NOTE | 2020-09-14 11:35 | NUR ---
Strickland catheter insertion Patient assessed and determined to be in need of strickland catheter. Order obtained from MD. Patient educated on catheter and reason for insertion. All questions answered. Strickland catheter 16 gauge Tamazight inserted with clean sterile technique. Patient tolerated well. No urine output visible in strickland bag.
--- NOTE | 2020-09-14 11:38 | NUR ---
PATIENT STATUS CHANGE PATIENT BECAME DIAPHORETIC AND COMPLAINED SHE WAS FEELING SHORTNESS OF BREATH. OBTAINED EKG AND AT THAT TIME PATIENT BEGAN TO COMPLAIN OF BACK PAIN. CINDY CABINET ASSEMBLER AND BLAIR RN AT BEDSIDE TRYING TO OBTAIN VITALS. UNABLE TO OBTAIN BLOOD PRESSURE OR OXYGEN SATURATION. CODE ASSIST CALLED AT 11:42 AFTER NO PULSE FOUND CODE BLUE CALLED CPR INITIATED. DR. RILEY AT BEDSIDE AND RESPIRATORY THERAPY. DON ENGLE CONTACTED BY DR. PACK, PER , "STOP COMPRESSIONS". TIME OF CALLED AT 12:14 BY .
--- NOTE | 2020-09-14 12:20 | NUR ---
[facility] [employer] Notified Spoke to Diana Walters
--- NOTE | 2020-09-14 12:45 | NUR ---
Called professor computer science office Office said will call back
--- NOTE | 2020-09-14 13:20 | NUR ---
RE: called account collector office Spoke with Eddie, notified that call is still pending.
--- NOTE | 2020-09-14 14:06 | NUR ---
RE: received call back from industrial furnace fabricator office Spoke with [employer] shift engineer. [employer] released case and lines can be removed.
[2020-09-14] MEDS ORDERED: EPINEPHrine HCL 1 MG/10 ML SYRG IV ONE (14:41)
== END 2020-09-14 14:42 | disposition expired | DRG 871 ==
LOC: ER 12:20 → TELE 12:21 → TELE-CENTR 23:34
PROVIDERS: ADMIT Family Medicine; ATTEND Internal Medicine
PROC: XW033E5 Introduction of Remdesivir Anti-infective into Peripheral Vein, Percutaneous Approach, New Technology Group 5 (ICD-10-PCS; 2020-09-06)
PROC: XW13325 Transfusion of Convalescent Plasma (Nonautologous) into Peripheral Vein, Percutaneous Approach, New Technology Group 5 (ICD-10-PCS; principal; 2020-09-07)
DX: A41.89 Other specified sepsis (principal); U07.1 COVID-19; J12.89 Other viral pneumonia; J96.01 Acute respiratory failure with hypoxia; N17.0 Acute kidney failure with tubular necrosis; E87.1 Hypo-osmolality and hyponatremia; Z68.41 Body mass index [BMI] 40.0-44.9, adult; E86.0 Dehydration; E11.65 Type 2 diabetes mellitus with hyperglycemia; E03.9 Hypothyroidism, unspecified; M35.00 Sjogren syndrome, unspecified; N18.9 Chronic kidney disease, unspecified; E11.21 Type 2 diabetes mellitus with diabetic nephropathy; E66.01 Morbid (severe) obesity due to excess calories; D63.8 Anemia in other chronic diseases classified elsewhere; I12.9 Hypertensive chronic kidney disease with stage 1 through stage 4 chronic kidney disease, or unspecified chronic kidney disease; E78.5 Hyperlipidemia, unspecified; R19.7 Diarrhea, unspecified; E11.22 Type 2 diabetes mellitus with diabetic chronic kidney disease; T36.95XA Adverse effect of unspecified systemic antibiotic, initial encounter; Z80.9 Family history of malignant neoplasm, unspecified; Z82.49 Family history of ischemic heart disease and other diseases of the circulatory system; Z85.42 Personal history of malignant neoplasm of other parts of uterus; Z90.710 Acquired absence of both cervix and uterus; Y92.89 Other specified places as the place of occurrence of the external cause; Z90.49 Acquired absence of other specified parts of digestive tract
CPT/HCPCS: 36415; 36600; 71045; 80048; 80053; 80061; 81001; 82270; 82728; 82805; 82962; 83036; 83540; 83550; 83605; 83615; 83735; 83880; 84443; 84484; 85014; 85018; 85025; 85379; 86141; 86850; 86900; 86901; 87040; 87045; 87077; 87086; 87186; 87426; 87427; 93970; 94640; 96374; 97163; G0378; J0696; J1100; J1815; J2405; J2543